=== PATIENT | female | born 1955 | race Caucasian/White ===

== ENCOUNTER → 2016-10-19 | Outpatient (CLI) | payer OTHER ==
--- NOTE | 2016-10-19 15:26 | CT ---
EXAMINATION TYPE: CT abdomen pelvis w con DATE OF EXAM: 10/19/2016 2:41 PM HISTORY: Upper abdominal pain, abnormal HIDA scan per patient CT DLP: 532.2mGycm Automated Exposure Control for Dose Reduction was Utilized. CONTRAST: CT scan of the abdomen and pelvis is performed with IV Contrast, patient injected with 100 mL of Omni paque 300. COMPARISON: None. FINDINGS: LUNG BASES: No significant abnormality is appreciated. LIVER/GB: No significant abnormality is appreciated. PANCREAS: No significant abnormality is seen. SPLEEN: No significant abnormality is seen. ADRENALS: No significant abnormality is seen. KIDNEYS: No significant abnormality is seen. BOWEL: Oral contrast does not reach terminal ileum level making evaluation of distal bowel slightly s uboptimal. There is no suspicious small or large bowel dilatation seen. There are sigmoid colonic div erticula identified. There is no CT evidence for acute diverticulitis. UTERUS/ADNEXA: Uterus is slightly retroverted in shape but normal in size. LYMPH NODES: No greater than 1cm abdominal or pelvic lymph nodes are appreciated. OSSEOUS STRUCTURES: Some multilevel spurring in the thoracic spine is present. There is multilevel fa cet arthropathy in the mid to lower lumbar spine. OTHER: There is mild mixed plaque in the abdominal aorta extending into pelvic branch vessels. IMPRESSION: No significant acute finding is seen to account for patient's clinical symptoms.
== END | disposition home or self-care (01) ==
LOC: RADCTMAIN 14:10
PROVIDERS: ATTEND Family Medicine
DX: R10.10 Upper abdominal pain, unspecified (principal)
CPT/HCPCS: 74177; Q9967 ×2

== ENCOUNTER → 2016-11-05 | Outpatient (CLI) | payer OTHER ==
--- NOTE | 2016-11-05 09:39 | BD ---
EXAMINATION TYPE: MG DEXA axial skeleton. DATE OF EXAM: 11/05/2016 8:50 AM COMPARISON: 06.05.2005 DEXA bone scan report CLINICAL HISTORY: M89.9 DISORDER OF BONE HX OF CT OF ABDOMEN WITH CONTRAST....17 DAYS AGO Height: 63 Weight: 148 FRAX RISK QUESTIONS: Alcohol (3 or more units per day): NO Family History (Parent hip fracture): YES, WITH BROKEN HIP Glucocorticoids (More than 3mos): NO (Ex: prednisone, prednisolone, methylprednisolone, dexamethasone, and hydrocortisone). History of Fracture in Adulthood: NO Secondary Osteoporosis: NO 1. Type 1 Diabetes: NO 2. Hyperthyroidism: NO 3. Menopause before 45: NO 4. Malnutrition: NO 5. Chronic liver disease: NO Rheumatoid Arthritis: NO Current Tobacco Use: NO RISK FACTORS HISTORY OF: Surgery to Spine NECK FUSION ONLY....C5 AND 6 Family History of Osteoporosis: YES, HER MOTHER AND AUNT Smoke tobacco: NO Drink Alcohol: SOCIAL Active: YES Diet low in dairy products/other sources of calcium: YES A BIT LOW Postmenopausal woman: AT 53 YRS Adrenal Insufficiency: NO MEDICATIONS: Additional Medications: CALCIUM AND VIT D, Additional History: NONE TO NOTE EXAM MEASUREMENTS: Bone mineral densitometry was performed using the Ur[employer] System. Bone mineral density as measured about the Lumbar spine is: ----- L1-L4(G/cm2): 1.134 T Score Values are as follows: ----- L1: -1.0 ----- L2: -1.3 ----- L3: 0.4 ----- L4: 0.0 ----- L1-L4: -0.4 Bone mineral density has: Decreased -5.6% since study of: 06.05.2005 Bone mineral density about the R hip (g/cm2): 0.733 Bone mineral density about the L hip (g/cm2): 0.783 T Score values are as follows: -----R Neck: -2.3 -----L Neck: -2.5 -----R Intertrochanter: -2.6 -----L Intertrochanter: -2.1 Bone mineral density has: Decreased -10.9% since study of: 06.05.2005 FRAX %'S: 22.6% FOR A MAJOR OSTEOPOROTIC FX AND 2.5% FOR A HIP FX....PROBABILITY OF FX IN 10 YRS TIME IMPRESSION: Osteopenia (T Score between -2.5 and -1 as noted by T score values in both hips remains present. Bone density is diminished from prior study. There is slightly increased risk of fracture and the patient may be considered for treatment. Re-Screen 1-2 years. NOTE: T-SCORE=SD OF THE YOUNG ADULT MEAN.
--- NOTE | 2016-11-06 10:38 | MM ---
Reason for exam: screening (asymptomatic). Last mammogram was performed 1 year ago. History: Patient is postmenopausal. Family history of breast cancer in mother at age 80 and breast cancer in aunt. Physical Findings: A clinical breast exam by your physician is recommended on an annual basis and results should be correlated with mammographic findings. MG 3D Screening Mammo W/Cad Bilateral CC and MLO view(s) were taken. Prior study comparison: October 27, 2015, bilateral MG 3d diag mammo w/cad [facility]. December 13, 2014, bilateral MG screening mammo w CAD. April 20, 2013, bilateral digital screening mammo w/CAD. The breast tissue is heterogeneously dense. This may lower the sensitivity of mammography. Finding: There are typically benign vascular calcifications in the left breast. There is no discrete abnormality. ASSESSMENT: Benign, BI-RAD 2 RECOMMENDATION: Routine screening mammogram of both breasts in 1 year. Manage patient on a clinical basis. Bilateral itchiness.
== END | disposition home or self-care (01) ==
LOC: RADMAMWWP 08:07
PROVIDERS: ATTEND Family Medicine
DX: Z12.31 Encounter for screening mammogram for malignant neoplasm of breast (principal); M85.80 Other specified disorders of bone density and structure, unspecified site; Z78.0 Asymptomatic menopausal state; Z80.3 Family history of malignant neoplasm of breast
CPT/HCPCS: 77080; 77063; G0202

== ENCOUNTER → 2016-11-09 | Outpatient (CLI) | payer OTHER ==
--- NOTE | 2016-11-09 10:01 | NM ---
EXAMINATION TYPE: NM hepatobiliary w EF DATE OF EXAM: 11/09/2016 9:26 AM COMPARISON: Pain HISTORY: TECHNIQUE: After the intravenous administration of 5.4 mCi Tc 99m Mebrofenin hepatobiliary scintigrap hy is performed. Immediate images post injection. FINDINGS: There is satisfactory initial accumulation of tracer by the liver. The gallbladder is visualized wit hin 10 minutes. The small bowel activity is noted within 50 minutes. At one hour 8 ounces of oral e nsure plus is given to mimic CCK and gallbladder ejection fraction is calculated at 82 %, in the norm al range. IMPRESSION: 1. No evidence of cholecystitis 2. Ejection fraction 82%
== END | disposition home or self-care (01) ==
LOC: RADNMMAIN 06:58
PROVIDERS: ATTEND Family Medicine
DX: R10.10 Upper abdominal pain, unspecified (principal)
CPT/HCPCS: 78226; A9537

== ENCOUNTER → 2016-12-17 | Outpatient (CLI) | payer OTHER ==
[2016-12-19 20:40] LABS: Mercury Whole Blood < 2 mcg/L (< 11)
== END | disposition home or self-care (01) ==
LOC: LABWHC1 14:06
PROVIDERS: ATTEND Family Medicine
DX: K90.9 Intestinal malabsorption, unspecified (principal)
CPT/HCPCS: 36415; 82175; 82570; 83630; 83655; 83825; 87045; 87046; 87328; 87329; 87338; 89055

== ENCOUNTER → 2017-06-04 | Outpatient (CLI) | payer OTHER ==
--- NOTE | 2017-06-04 16:45 | XR ---
EXAMINATION TYPE: XR abdomen 1V DATE OF EXAM: 06/04/2017 COMPARISON: 05/21/2013 HISTORY: Abdominal pain TECHNIQUE: 2 views FINDINGS: There is no sign of intestinal obstruction or pneumoperitoneum. Fecal pattern is normal. Maya ng bases are clear. There are no pathologic calcifications over the kidneys. IMPRESSION: Nonacute abdomen. No change.
== END | disposition home or self-care (01) ==
LOC: RADXRMAIN 16:25
PROVIDERS: ATTEND Family Medicine
DX: R10.9 Unspecified abdominal pain (principal)
CPT/HCPCS: 74000

== ENCOUNTER → 2017-10-04 | Outpatient (CLI) | payer OTHER ==
--- NOTE | 2017-10-04 07:23 | MR ---
EXAMINATION TYPE: MR brain wo/w cspine wo DATE OF EXAM: 10/04/2017 COMPARISON: Prior MRI brain and cervical spine June 25, 2013 HISTORY: General paresis / Skin disturbance, Weakness in arms, MS TECHNIQUE: Multiplanar, multisequence images of the cervical spine, brain , and brainstem is performed without a nd with IV contrast, utilizing 7 mL intravenous Gadavist gadolinium contrast is administered intraven ously. Demyelinating disease protocol with additional Sagittal Flair sequence performed of the brain and brainstem and PD sagittal sequence of cervical spine all acquired. FINDINGS: BRAIN: T2 Lesions Present : No Approximate Number of Lesions: N/A Locations Identified : N/A Size of Reference Lesion(s): N/A Enhancing Lesion(s) Present: N/A T1 Hypointense Lesion(s) Present: N/A Change from Prior: Stable Diffusion weighted images demonstrate no evidence of a recent infarct or other diffusion abnormality. There is no worrisome extra-axial fluid collection. The ventricular system and cisternal spaces ar e normal in size and appearance. The brain volume is age appropriate. Midline structures demonstrate normal morphology. The craniocervical junction appears within normal limits. Post contrast images demonstrate no abnormal enhancement. The dural venous sinuses appear pa tent. The visualized sinuses are clear and the globes are intact. IMPRESSION: No significant white matter changes to support clinical diagnosis of demyelinating diseas e. Unremarkable study. No significant change from prior MRI. C-SPINE: FINDINGS: Sagittal images of the cervical spine show the craniocervical junction to remain within nor mal limits. The cervical and upper thoracic spinal cord is normal in course, caliber, and signal. V ertebral alignment is stable and satisfactory. There is persistent desired ossific fusion after surge ry C5-C6 level. Vertebral body heights and disc space heights above and below surgical level are stab le and satisfactory. The bone marrow signal intensity is within normal limits. No significant spurrin g is seen. Posterior disc herniation C4-C5 level is redemonstrated on sagittal images. Axial images at C2-C3 level redemonstrate tiny right paracentral/foraminal disc protrusion on axial i mage 45 minimally effacing anterolateral thecal sac and causing mild to minimal right-sided neural fo raminal narrowing. Left-sided neural foramen is patent. No significant change from prior study is see n. Axial images at C3-C4 level redemonstrate right foraminal spur disc complex on axial image 39 effacin g anterolateral thecal sac and causing moderate right-sided neural foraminal narrowing. Left-sided ne ural foramen is patent. No significant significant change from prior study is seen. Axial images at C4-C5 level show broad-based posterior disc protrusion effacing anterior thecal sac n early up to ventral surface of spinal cord. Bilateral neural foramina remain patent on axial image 30 . No significant change from prior. Axial images at C5-C6 level show patent bilateral neural foramina. No significant disc herniation. Os sific fusion noted. Axial images at C6-C7 level show new left paracentral disc protrusion effacing anterolateral thecal s ac and causing mild right-sided neural foraminal narrowing, addition there is right foraminal disc pr otrusion component causing mild to moderate left-sided neural foraminal narrowing on axial image 16. Axial images at C7-T1 level remain within normal limits. There is subcentimeter cystic change suspected left thyroid lobe axial image 5 seen better on current study. IMPRESSION: No evidence of demyelinating disease involvement and cervical spinal cord. Postsurgical c hanges C5-C6 level with stable and satisfactory alignment. Multilevel generative changes redemonstrat ed as detailed above, new degenerative changes or lobulated disc herniation C6-C7 level noted.
== END | disposition home or self-care (01) ==
LOC: RADMRIMAIN 06:05
PROVIDERS: ATTEND Family Medicine
DX: M50.223 Other cervical disc displacement at C6-C7 level (principal); M47.812 Spondylosis without myelopathy or radiculopathy, cervical region; A52.17 General paresis; Z98.1 Arthrodesis status
CPT/HCPCS: 70553; 72141; A9581

== ENCOUNTER → 2017-11-15 | Outpatient (CLI) | payer OTHER ==
--- NOTE | 2017-11-15 14:14 | XR ---
EXAMINATION TYPE: XR chest 2V DATE OF EXAM: 11/15/2017 COMPARISON: NONE TECHNIQUE: PA and lateral views submitted. HISTORY: Pre op neck surgery FINDINGS: The lungs are clear and there is no pneumothorax, pleural effusion, or focal pneumonia. Calcified g ranuloma left upper lobe. Hypertrophic and degenerative change noted of the spine. Atherosclerotic ch antoinette aorta. IMPRESSION: 1. No acute process.
== END | disposition home or self-care (01) ==
LOC: RADXRMAIN 13:53
PROVIDERS: ATTEND Family Medicine
DX: Z01.818 Encounter for other preprocedural examination (principal)
CPT/HCPCS: 71046

== ENCOUNTER → 2018-05-16 | Outpatient (CLI) | payer OTHER ==
--- NOTE | 2018-05-16 14:18 | US ---
EXAMINATION TYPE: US kidneys/renal and bladder DATE OF EXAM: 05/16/2018 COMPARISON: CT and US CLINICAL HISTORY: R31.9 Hematuria. Pt states gross hematuria, urinary frequency, lower ABD pain EXAM MEASUREMENTS: Right Kidney: 10.4 x 4.1 x 3.7 cm Left Kidney: 10.9 x 5.2 x 4.8 cm Right Kidney: No evidence of hydro, possible specular reflectors scattered throughout ?calculi vs. ve ssel calcifications vs. other etiology Left Kidney: No evidence of hydro, possible specular reflectors scattered throughout ?calculi vs. ves jade calcifications vs. other etiology Bladder: wnl. Bilateral Jets seen: Only right jet visualized IMPRESSION: 1. Suspicion of a nonobstructing renal stones, largest in the superior pole right kidney 0.5 cm.
== END | disposition home or self-care (01) ==
LOC: RADUSWWP 12:53
PROVIDERS: ATTEND Family Medicine
DX: R31.9 Hematuria, unspecified (principal)
CPT/HCPCS: 76770

== ENCOUNTER 2018-12-11 09:33 | Emergency (ER) | payer OTHER ==
[2018-12-11 09:40] VITALS: TEMP 96.9
[2018-12-11] MEDS ORDERED: SODIUM CHLORIDE 0.9% 500 ML 500 ML IV STA (10:08)
[2018-12-11] MEDS ORDERED: MECLIZINE 12.5 MG TAB PO STA (10:45)
[2018-12-11] MEDS ORDERED: SODIUM CHLORIDE 0.9% 1,000 ML IV ONE (10:45)
[2018-12-11] MEDS ORDERED: ONDANSETRON 4 MG/2 ML VIAL IVP STA (10:45)
--- NOTE | 2018-12-11 10:46 | ED ---
General Adult HPI - General Chief complaint: Syncope Stated complaint: High BP, Light headed Time Seen by Provider: 12/11/18 10:08 Source: patient, RN notes reviewed Mode of arrival: ambulatory Limitations: no limitations - History of Present Illness Initial comments: 63-year-old female presents emergency Department with chief complaint of denies is not feeling well. Patient states she's had some left shoulder left arm pain last day or so did go to a chiropractor in which she received a massage. Patient states that did not help much. Patient states that she is now felt lightheaded, dizzy throughout the day and slightly nauseated. Patient denies any chest pain per se but states that she does have some chest pressure. She also states that she works at [email or web address] on the leg and intractable pressure which was elevated. She does not take any current medications. Patient did admit that she had cervical fusion 1 year ago. Denies any focal weakness denies vomiting, diarrhea, constipation. Denies any current shortness of breath. She does state that she sits up she feels lightheaded. - Related Data Home Medications Medication Instructions Recorded Confirmed Acetaminophen Tab [Tylenol Tab] 975 mg PO Q4H PRN 12/11/18 12/11/18 Turmeric Root Extract [Turmeric] 500 mg PO HS 12/11/18 12/11/18 Previous Rx's Medication Instructions Recorded Meclizine [Antivert] 25 mg PO TID PRN #15 tab 12/11/18 Ondansetron Odt [Zofran Odt] 4 mg PO Q8HR PRN #10 tab 12/11/18 Allergies Allergy/AdvReac Type Severity Reaction Status Date / Time codeine Allergy Nausea Verified 12/11/18 09:57 Review of Systems ROS Statement: Those systems with pertinent positive or pertinent negative responses have been documented in the HPI. ROS Other: All systems not noted in ROS Statement are negative. Past Medical History Past Medical History: Hyperlipidemia Additional Past Medical History / Comment(s): heartburn, constipation/diarrhea, skin "bumps" rash that comes and goes, cholesterol-diet control, blood test showed "inflammation", History of Any Multi-Drug Resistant Organisms: None Reported Past Surgical History: Back Surgery Additional Past Surgical History / Comment(s): cervical fusion, D&C Past Anesthesia/Blood Transfusion Reactions: Motion Sickness Past Psychological History: No Psychological Hx Reported Smoking Status: Never smoker - Past Family History Mother Family Medical History: Cancer, Pulmonary Embolus General Exam Limitations: no limitations General appearance: alert, in no apparent distress Head exam: Present: atraumatic, normocephalic, normal inspection Eye exam: Present: normal appearance, PERRL, EOMI. Absent: scleral icterus, conjunctival injection, periorbital swelling ENT exam: Present: normal exam, normal oropharynx, mucous membranes moist, TM's normal bilaterally Neck exam: Present: normal inspection, full ROM. Absent: tenderness, meningismus, lymphadenopathy Respiratory exam: Present: normal lung sounds bilaterally. Absent: respiratory distress, wheezes, rales, rhonchi, stridor Cardiovascular Exam: Present: regular rate, normal rhythm, normal heart sounds. Absent: systolic murmur, diastolic murmur, rubs, gallop, clicks Back exam: Present: full ROM. Absent: tenderness Neurological exam: Present: alert, oriented X3, CN II-XII intact, reflexes normal. Absent: motor sensory deficit Skin exam: Present: warm, dry, intact, normal color. Absent: rash Course Vital Signs 12/11/18 12/11/18 12/11/18 09:37 10:30 11:00 Temperature 96.9 F L Pulse Rate 79 82 77 Respiratory 18 17 16 Rate Blood Pressure 166/88 182/97 169/88 O2 Sat by Pulse 98 98 99 Oximetry 12/11/18 12/11/18 12/11/18 11:30 12:00 13:00 Temperature Pulse Rate 76 72 94 Respiratory 17 16 18 Rate Blood Pressure 162/85 148/90 149/78 O2 Sat by Pulse 98 97 100 Oximetry EKG Findings - EKG Comments: EKG Findings:: EKG performed at time: 17 normal sinus rhythm with rate 69 DC 122 QRS 88 QT/ QTC 372/398 Medical Decision Making - Medical Decision Making 63-year-old female presented for generalized not feeling well, lightheaded and dizzy. Patient had lab work, EKG, chest x-ray and CT of the brain to rule out mass or bleeding. Patient has no focal deficits no concern for CVA this time. Patient's symptoms are more consistent with vertigo. Patient is improved at the IV fluids, antiemetics and Antivert. Patient discharged with Zofran and Antivert. Return parameters discussed. - Lab Data Result diagrams: 12/11/18 10:41 12/11/18 10:41 Lab Results 12/11/18 12/11/18 12/11/18 Range/Units 10:30 10:41 10:41 WBC 9.2 (3.8-10.6) k/uL RBC 4.55 (3.80-5.40) m/uL Hgb 13.6 (11.4-16.0) gm/dL Hct 42.8 (34.0-46.0) % MCV 94.0 (80.0-100.0) fL MCH 29.9 (25.0-35.0) pg MCHC 31.8 (31.0-37.0) g/dL RDW 12.3 (11.5-15.5) % Plt Count 386 (150-450) k/uL Neutrophils % 75 % Lymphocytes % 16 % Monocytes % 5 % Eosinophils % 2 % Basophils % 1 % Neutrophils # 6.9 (1.3-7.7) k/uL Lymphocytes # 1.5 (1.0-4.8) k/uL Monocytes # 0.5 (0-1.0) k/uL Eosinophils # 0.2 (0-0.7) k/uL Basophils # 0.1 (0-0.2) k/uL PT (9.0-12.0) sec INR (<1.2) APTT (22.0-30.0) sec D-Dimer (<0.60) mg/L FEU Sodium 139 (137-145) mmol/L Potassium 4.4 (3.5-5.1) mmol/L Chloride 102 (98-107) mmol/L Carbon Dioxide 27 (22-30) mmol/L Anion Gap 10 mmol/L BUN 10 (7-17) mg/dL Creatinine 0.43 L (0.52-1.04) mg/dL Est GFR (CKD-EPI)AfAm >90 (>60 ml/min/1.73 sqM) Est GFR (CKD-EPI)NonAf >90 (>60 ml/min/1.73 sqM) Glucose 102 H (74-99) mg/dL Calcium 9.4 (8.4-10.2) mg/dL Magnesium 2.1 (1.6-2.3) mg/dL Total Bilirubin 0.5 (0.2-1.3) mg/dL AST 29 (14-36) U/L ALT 35 (9-52) U/L Alkaline Phosphatase 67 (38-126) U/L Troponin I (0.000-0.034) ng/mL Total Protein 7.7 (6.3-8.2) g/dL Albumin 4.7 (3.5-5.0) g/dL Urine Color Light Yellow Urine Appearance Cloudy H (Clear) Urine pH 8.0 (5.0-8.0) Ur Specific [place] 1.015 (1.001-1.035) Urine Protein Negative (Negative) Urine Glucose (UA) Negative (Negative) Urine Ketones Negative (Negative) Urine Blood Negative (Negative) Urine Nitrite Negative (Negative) Urine Bilirubin Negative (Negative) Urine Urobilinogen <2.0 (<2.0) mg/dL Ur Leukocyte Esterase Negative (Negative) Urine WBC 1 (0-5) /hpf Ur Squamous Epith Cells <1 (0-4) /hpf Amorphous Sediment Moderate H (None) /hpf 12/11/18 12/11/18 Range/Units 10:41 10:41 WBC (3.8-10.6) k/uL RBC (3.80-5.40) m/uL Hgb (11.4-16.0) gm/dL Hct (34.0-46.0) % MCV (80.0-100.0) fL MCH (25.0-35.0) pg MCHC (31.0-37.0) g/dL RDW (11.5-15.5) % Plt Count (150-450) k/uL Neutrophils % % Lymphocytes % % Monocytes % % Eosinophils % % Basophils % % Neutrophils # (1.3-7.7) k/uL Lymphocytes # (1.0-4.8) k/uL Monocytes # (0-1.0) k/uL Eosinophils # (0-0.7) k/uL Basophils # (0-0.2) k/uL PT 9.7 (9.0-12.0) sec INR 0.9 (<1.2) APTT 24.9 (22.0-30.0) sec D-Dimer 0.25 (<0.60) mg/L FEU Sodium (137-145) mmol/L Potassium (3.5-5.1) mmol/L Chloride (98-107) mmol/L Carbon Dioxide (22-30) mmol/L Anion Gap mmol/L BUN (7-17) mg/dL Creatinine (0.52-1.04) mg/dL Est GFR (CKD-EPI)AfAm (>60 ml/min/1.73 sqM) Est GFR (CKD-EPI)NonAf (>60 ml/min/1.73 sqM) Glucose (74-99) mg/dL Calcium (8.4-10.2) mg/dL Magnesium (1.6-2.3) mg/dL Total Bilirubin (0.2-1.3) mg/dL AST (14-36) U/L ALT (9-52) U/L Alkaline Phosphatase (38-126) U/L Troponin I <0.012 (0.000-0.034) ng/mL Total Protein (6.3-8.2) g/dL Albumin (3.5-5.0) g/dL Urine Color Urine Appearance (Clear) Urine pH (5.0-8.0) Ur Specific [place] (1.001-1.035) Urine Protein (Negative) Urine Glucose (UA) (Negative) Urine Ketones (Negative) Urine Blood (Negative) Urine Nitrite (Negative) Urine Bilirubin (Negative) Urine Urobilinogen (<2.0) mg/dL Ur Leukocyte Esterase (Negative) Urine WBC (0-5) /hpf Ur Squamous Epith Cells (0-4) /hpf Amorphous Sediment (None) /hpf Disposition Clinical Impression: Vertigo, Nausea Disposition: HOME SELF-CARE Condition: Stable Instructions (If sedation given, give patient instructions): Vertigo (ED) Additional Instructions: Please return to the Emergency Department if symptoms worsen or any other concerns. Prescriptions: Meclizine [Antivert] 25 mg PO TID PRN #15 tab PRN Reason: Vertigo Ondansetron Odt [Zofran Odt] 4 mg PO Q8HR PRN #10 tab PRN Reason: Nausea Is patient prescribed a controlled substance at d/c from ED?: No Referrals: Mildred Figueroa MD [Primary Care Provider] - 1-2 days Time of Disposition: 13:23
[2018-12-11 10:53] LABS: Basophils # (A) 0.1 k/uL (0-0.2); Basophils % (A) 1 %; Eosinophils # (A) 0.2 k/uL (0-0.7); Eosinophils % (A) 2 %; HCT 42.8 % (34.0-46.0); HGB 13.6 gm/dL (11.4-16.0); Lymphocytes # (A) 1.5 k/uL (1.0-4.8); Lymphocytes % (A) 16 %; MCH 29.9 pg (25.0-35.0); MCHC 31.8 g/dL (31.0-37.0); Mean Platelet Volume 7.7; Monocytes # (A) 0.5 k/uL (0-1.0); Monocytes % (A) 5 %; Neutrophils # (A) 6.9 k/uL (1.3-7.7); Neutrophils % (A) 75 %; Platelet Count 386 k/uL (150-450); RBC 4.55 m/uL (3.80-5.40); RDW 12.3 % (11.5-15.5); WBC 9.2 k/uL (3.8-10.6)
[2018-12-11 11:03] LABS: ALT 35 U/L (9-52); AST 29 U/L (14-36); Albumin 4.7 g/dL (3.5-5.0); Alkaline Phosphatase 67 U/L (38-126); Anion Gap 10 mmol/L; Blood Urea Nitrogen 10 mg/dL (7-17); Calcium 9.4 mg/dL (8.4-10.2); Carbon Dioxide 27 mmol/L (22-30); Chloride 102 mmol/L (98-107); Glucose 102 mg/dL (74-99); Potassium 4.4 mmol/L (3.5-5.1); Sodium 139 mmol/L (137-145); Total Bilirubin 0.5 mg/dL (0.2-1.3); Total Protein 7.7 g/dL (6.3-8.2)
[2018-12-11 11:06] LABS: D-Dimer 0.25 mg/L FEU (<0.60); INR 0.9 (<1.2); Partial Thromboplastin Time 24.9 sec (22.0-30.0); Prothrombin Time 9.7 sec (9.0-12.0)
[2018-12-11 11:07] LABS: Amorphous Sediment,Urine Moderate /hpf; Appearance,Urine Cloudy (Clear); Bilirubin,Urine Negative (Negative); Blood,Urine Negative (Negative); Color,Urine Light Yellow; Glucose,Urine (UA) Negative (Negative); Ketones,Urine Negative (Negative); Leukocyte Esterase,Urine Negative (Negative); Nitrite,Urine Negative (Negative); Protein,Urine Negative (Negative); Specific Gravity,Urine 1.015 (1.001-1.035); Squamous Epithelial Cell,Urine <1 /hpf (0-4); Urobilinogen,Urine <2.0 mg/dL (<2.0); WBC,Urine 1 /hpf (0-5)
--- NOTE | 2018-12-11 11:25 | XR ---
EXAMINATION TYPE: XR chest 2V DATE OF EXAM: 12/11/2018 COMPARISON: Prior chest x-ray 11/15/2017 HISTORY: Syncope TECHNIQUE: Frontal and lateral views of the chest are obtained. FINDINGS: There is no focal air space opacity, pleural effusion, or pneumothorax seen. The cardiac silhouette size is within normal limits. Postop changes are noted to the cervical spine. There are ov erlying cardiac leads. Right hemidiaphragm is persistently elevated. Aorta is dense. The osseous st ructures are intact. IMPRESSION: No acute cardiopulmonary process.
[2018-12-11 11:36] LABS: Magnesium 2.1 mg/dL (1.6-2.3)
[2018-12-11] MEDS ORDERED: METOCLOPRAMIDE 5 MG/ML 2 ML VIAL IVP STA (11:50)
--- NOTE | 2018-12-11 13:10 | CT ---
EXAMINATION TYPE: CT brain wo con DATE OF EXAM: 12/11/2018 COMPARISON: 05/21/2013 INDICATION: Pain and dizziness DLP: 1099.4 mGycm, Automated exposure control for dose reduction was used. CONTRAST: None CT of the brain is performed utilizing 3 mm thick sections through the posterior fossa and 3 mm thick sections through the remaining calvarium. Study is performed within 24 hours of arrival to the hosp ital. No abnormal hyperdensity is present to suggest an acute intracranial hemorrhage. No mass lesion is evident. Stable punctate calcifications in the right basal ganglion No acute infarcts are evident. Ventricles and sulci are appropriate for the patient age. Paranasal sinuses and mastoid air cells within the [id number] are clear. IMPRESSIONS: 1. Normal CT Brain
[2018-12-11 13:12] VITALS: BP 149/78; PULSE 94; RESP 18
== END 2018-12-11 17:36 | disposition home or self-care (01) ==
LOC: EC 09:33
DX: R42 Dizziness and giddiness (principal); R11.0 Nausea; Z88.5 Allergy status to narcotic agent
CPT/HCPCS: 36415; 93005; 85379; 80053; 83735; 84484; 85025; 85610; 85730; 81001; 71046; 70450; 99284; 96374; 96375; 96361; J2765; J2405

== ENCOUNTER → 2019-04-09 | Outpatient (CLI) | payer OTHER ==
--- NOTE | 2019-04-09 16:35 | NM ---
EXAMINATION TYPE: NM hepatobiliary w EF DATE OF EXAM: 04/09/2019 COMPARISON: Prior exam 11/09/2016 HISTORY: Right upper quadrant pain TECHNIQUE: After the intravenous administration of 4.51 mCi Tc 99m Mebrofenin hepatobiliary scintigra phy is performed. Immediate images post injection. FINDINGS: There is satisfactory initial accumulation of tracer by the liver. The gallbladder is visualized wit hin 4 minutes. The small bowel activity is noted within 18 minutes. At one hour 8 ounces of oral en sure plus is given to mimic CCK and gallbladder ejection fraction is calculated at 89 %, higher than on previous exam and slightly above the upper limit of the normal range. Therefore there is no scint igraphic evidence of cystic or common bile duct obstruction to suggest acute cholecystitis. IMPRESSION: Findings could possibly represent hyper dynamic gallbladder
== END ==
LOC: RADNMMAIN 12:31
PROVIDERS: ATTEND Internal Medicine
DX: R10.11 Right upper quadrant pain (principal)
CPT/HCPCS: 78226; A9537

== ENCOUNTER → 2019-08-25 | Outpatient (CLI) | payer OTHER, MEDICARE ==
--- NOTE | 2019-08-25 13:14 | XR ---
EXAMINATION TYPE: XR chest 2V DATE OF EXAM: 08/25/2019 COMPARISON: Prior chest x-ray 12/11/2018 HISTORY: This of breath TECHNIQUE: Frontal and lateral views of the chest are obtained. FINDINGS: There is no focal air space opacity, pleural effusion, or pneumothorax seen. The cardiac silhouette size is within normal limits. The osseous structures are intact. There is thoracic spond ylosis. Postop changes are noted to the cervical spine. Right hemidiaphragm is again elevated, there is eventration change present. Aorta is dense. IMPRESSION: No acute cardiopulmonary process.
== END | disposition home or self-care (01) ==
LOC: RADXRYALE 10:07
PROVIDERS: ATTEND Internal Medicine
DX: R06.02 Shortness of breath (principal)
CPT/HCPCS: 71046

== ENCOUNTER → 2019-09-23 | Outpatient (CLI) | payer OTHER, MEDICARE ==
--- NOTE | 2019-09-23 09:13 | US ---
EXAMINATION TYPE: US abdomen complete DATE OF EXAM: 09/23/2019 COMPARISON: NONE CLINICAL HISTORY: J98.6 DISORDERS OF DIAPHRAM. RUQ pain EXAM MEASUREMENTS: Liver Length: 13.0 cm Gallbladder Wall: 0.3 cm CBD: 0.4 cm Spleen: 8.3 cm Right Kidney: 10.0 x 3.9 x 3.7 cm Left Kidney: 10.7 x 5.1 x 4.4 cm Technical limitations due to large amount of overlying bowel content Pancreas: Obscured by bowel gas Liver: best visualized intercostally, limited evaluation Gallbladder: no evidence of stones Evidence for sonographic Shelby's sign: no CBD: appears wnl Spleen: appears wnl Right Kidney: no evidence of hydronephrosis Left Kidney: no evidence of hydronephrosis Upper IVC: wnl Abd Aorta: wnl The liver is heterogenous but suboptimally evaluated. The pancreas is obscured. No gross evidence of cholelithiasis or hydronephrosis. IMPRESSION: Severely limited exam due to overlying bowel gas. No gross evidence of cholelithiasis nor acute cholecystitis. No gross evidence of hydronephrosis. Possible hepatic steatosis.
--- NOTE | 2019-09-23 09:39 | BD ---
EXAMINATION TYPE: Axial Bone Density DATE OF EXAM: 09/23/2019 COMPARISON: 2017 CLINICAL HISTORY: N 95.8 Height: 64 inches Weight: 152 FRAX RISK QUESTIONS: Alcohol (3 or more units per day): no Family History (Parent hip fracture): YES Glucocorticoids (More than 3mos): no (Ex: prednisone, prednisolone, methylprednisolone, dexamethasone, and hydrocortisone). History of Fracture in Adulthood: no Secondary Osteoporosis: 1. Type 1 Diabetes: no 2. Hyperthyroidism: no 3. Menopause before 45: no 4. Malnutrition: no 5. Chronic liver disease: no Rheumatoid Arthritis: no Current Tobacco Use: no RISK FACTORS HISTORY OF: Surgery to Spine: cervical neck fusion When: about 2 years ago was last neck surgery, one before that also Family History of Osteoporosis: yes Active: yes Diet low in dairy products/other sources of calcium: no Postmenopausal woman: yes Take estrogen and/or progesterone medications: no Lost more than 2 inches in height since high school: no Frequent falls: no Poor Health: no Hyperparathyroidism: no Adrenal Insufficiency: no MEDICATIONS: Prednisone or other steroids: no Thyroid Medications: no Osteoporosis Medications: no Additional Medications: multivitamin, Vit D Additional History: arthritis EXAM MEASUREMENTS: Bone mineral densitometry was performed using the [place] [facility]. Bone mineral density as measured about the Lumbar spine is: ----- L1-L4(G/cm2): 1.146 T Score Values are as follows: ----- L2: -1.0 ----- L3: 0.3 ----- L4: 0.2 ----- L1-L4: -0.3 Bone mineral density has: Increased 1.8% since study of: 11/05/2016 Bone mineral density about the R hip (g/cm2): 0.661 Bone mineral density about the L hip (g/cm2): 0.709 T Score values are as follows: -----R Neck: -2.7 -----L Neck: -2.4 -----R Total: -2.2 -----L Total: -1.9 Bone mineral density has: Decreased -1.5% since study of: 11/05/2016 IMPRESSION: Osteoporosis (T Score less than -2.5). There is increased fracture risk and therapy is usually indicated based on age. Re-Screen 1-2 years. NOTE: T-SCORE=SD OF THE YOUNG ADULT MEAN.
--- NOTE | 2019-09-23 11:05 | MM ---
Reason for exam: screening (asymptomatic). Last mammogram was performed 2 years and 11 months ago. History: Patient is postmenopausal. Family history of breast cancer in mother at age 80 and breast cancer in aunt. Physical Findings: A clinical breast exam by your physician is recommended on an annual basis and results should be correlated with mammographic findings. MG 3D Screening Mammo W/Cad Bilateral CC and MLO view(s) were taken. Prior study comparison: November 05, 2016, bilateral MG 3d screening mammo w/cad. October 27, 2015, bilateral MG 3d diag mammo w/cad [facility]. The breast tissue is heterogeneously dense. This may lower the sensitivity of mammography. Benign appearing vascular calcifications in the left breast. No suspicious abnormality. ASSESSMENT: Benign, BI-RAD 2 RECOMMENDATION: Routine screening mammogram of both breasts in 1 year.
== END | disposition home or self-care (01) ==
LOC: RADMAMWWP 07:39
PROVIDERS: ATTEND Internal Medicine
DX: Z12.31 Encounter for screening mammogram for malignant neoplasm of breast (principal); M81.0 Age-related osteoporosis without current pathological fracture; J98.6 Disorders of diaphragm
CPT/HCPCS: 76700; 77063; 77067; 77080

== ENCOUNTER → 2020-10-31 | Outpatient (CLI) | payer MEDICARE, BC ==
--- NOTE | 2020-11-01 09:05 | MM ---
Reason for exam: screening (asymptomatic). Last mammogram was performed 1 year and 1 month ago. History: Patient is postmenopausal. Family history of breast cancer in mother at age 80 and breast cancer in aunt. Physical Findings: A clinical breast exam by your physician is recommended on an annual basis and results should be correlated with mammographic findings. MG 3D Screening Mammo W/Cad Bilateral CC and MLO view(s) were taken. Prior study comparison: September 23, 2019, bilateral MG 3d screening mammo w/cad. November 05, 2016, bilateral MG 3d screening mammo w/cad. The breast tissue is heterogeneously dense. This may lower the sensitivity of mammography. There are benign appearing round vascular calcifications bilaterally. There is no discrete abnormality. ASSESSMENT: Benign, BI-RAD 2 RECOMMENDATION: Routine screening mammogram of both breasts in 1 year.
== END | disposition home or self-care (01) ==
LOC: RADMAMWWP 08:10
PROVIDERS: ATTEND Internal Medicine
DX: Z12.31 Encounter for screening mammogram for malignant neoplasm of breast (principal); Z78.0 Asymptomatic menopausal state; Z80.3 Family history of malignant neoplasm of breast
CPT/HCPCS: 77063; 77067

== ENCOUNTER → 2023-04-17 | Outpatient (CLI) | payer MEDICARE, BC ==
--- NOTE | 2023-04-17 11:10 | MR ---
EXAMINATION TYPE: MR brain wo/w con DATE OF EXAM: 04/17/2023 COMPARISON: 10/04/2017 HISTORY: Pt keeps falling TECHNIQUE: Multiplanar, multisequence images of the brain and brainstem is performed without and with IV contras t, utilizing 6.5ml mL intravenous Gadavist . FINDINGS: Diffusion weighted images demonstrate no evidence of a recent infarct or other diffusion ab normality. There is mild generalized degenerative change. Areas of abnormal signal seen in the periv entricular white matter. The related artifact. Tiny area of abnormal signal in the hector suggestive of remote ischemia. There is a tiny punctate area of abnormal signal in the superior right parietal lobe likely related t o tiny focus of remote ischemic white matter change. Midline structures demonstrate normal morphology. The craniocervical junction appears within normal limits. Post contrast images demonstrate no abnormal enhancement. The dural venous sinuses appear pa tent. Orbits are symmetric. Mild changes of chronic mastoiditis and sinusitis. Previous surgery with artifact cervical spine. IMPRESSION: 1. No acute intracranial process.
--- NOTE | 2023-04-17 11:20 | MR ---
EXAMINATION TYPE: MR cervical spine wo con DATE OF EXAM: 04/17/2023 COMPARISON: 10/04/2017 HISTORY: Numbness left arm and fingers - Hx of neck surgery TECHNIQUE: Multiplanar, multisequence images of the cervical spine were acquired without contrast. There is artifact extending from levels C4-C7 suggestive of prior surgical change. C2-C3: Very mild central right paracentral disc bulging but no discrete herniation or canal stenosis or neural foramina. C3-C4: Posterior spondylosis with uncovertebral joint hypertrophy and facet arthropathy. There is mil d left and moderate right foraminal protrusion. Disc bulge or protrusion capped by spur r extends par acentrally and laterally to the right similar to prior exam. C4-C5: Postsurgical change with posterior spondylosis. Neural foramina are patent. Uncovertebral join t hypertrophy on the right. No canal stenosis. C5-C6: Postsurgical change with posterior spondylosis. Neural foramina are patent. Uncovertebral join t hypertrophy on the right. No canal stenosis C6-C7: Postsurgical change with posterior spondylosis. Neural foramina are patent. Uncovertebral join t hypertrophy on the right. No canal stenosis C7-T1: No evidence for degenerative disc disease. No disc bulge/herniation or protrusion. No Canal stenosis. Foramina are patent bilaterally. Cervical segments are intact. There is normal alignment. Cervical spinal cord is of normal signal. Craniovertebral junction relationships are within normal limits. Thyroid heterogeneous in signal. IMPRESSION: 1. Postsurgical changes compatible with anterior fusion with no evidence of canal stenosis or disc he rniation at the surgical levels. 2. There is a right paracentral and right lateral disc bulge or protrusion capped by spur C3-C4 with moderate right-sided foraminal encroachment similar to the prior exam. No canal stenosis. 3. Heterogeneous signal thyroid associated with thyroiditis.
== END | disposition home or self-care (01) ==
LOC: RADMRIMAIN 08:30
PROVIDERS: ATTEND Psychiatry & Neurology Neurology
DX: I67.9 Cerebrovascular disease, unspecified (principal); G99.2 Myelopathy in diseases classified elsewhere; M50.31 Other cervical disc degeneration, high cervical region; E06.9 Thyroiditis, unspecified; Z98.890 Other specified postprocedural states
CPT/HCPCS: 70553; 72141; A9585

== ENCOUNTER → 2023-08-12 | Outpatient (CLI) | payer MEDICARE, BC ==
--- NOTE | 2023-08-13 20:49 | MM ---
Reason for Exam: Screening (asymptomatic). Last mammogram was performed 1 year(s) and 8 month(s) ago. Patient History: Menarche at age 11. First Full-Term at age 22. Postmenopausal. Maternal aunt had breast cancer. Mother had breast cancer, age 80. Daughter had breast cancer, bilateral, age 46. Risk Values: Марина 5 year model risk: 6.9%. NCI Lifetime model risk: 20.0%. Prior Study Comparison: 09/23/2019 Bilateral Screening Mammogram, [facility]. 10/31/2020 Bilateral Screening Mammogram, [facility]. 11/30/2021 Bilateral MG 3D screening mammo w/cad, [facility]. Tissue Density: There are scattered fibroglandular densities. Findings: Analyzed By CAD. There is no suspicious group of microcalcifications or new suspicious mass in either breast. Overall Assessment: Negative, BI-RAD 1 Management: Screening Mammogram of both breasts in 1 year. SEE NOTE BELOW IN REGARDS TO PATIENT'S INCREASED FIVE-YEAR МАРИНА SCORE AND INCREASED LIFETIME RISK SCORE. Patient should continue monthly self-breast exams. A clinical breast exam by your physician is recommended on an annual basis. This exam should not preclude additional follow-up of suspicious palpable abnormalities. Note on Марина scores and lifetime risk: 1. A Марина score greater than 3% is considered moderate risk. If this is the case, consider specialist referral to assess eligibility for a risk reducing agent. 2. If overall lifetime risk for the development of breast cancer is 20% or higher, the patient may qualify for future screening with alternating mammogram and breast MRI. Electronically signed and approved by: Kelly Doss M.D. Radiologist
== END | disposition home or self-care (01) ==
LOC: RADMAMWWP 16:01
PROVIDERS: ATTEND Internal Medicine
DX: Z12.31 Encounter for screening mammogram for malignant neoplasm of breast (principal); Z80.3 Family history of malignant neoplasm of breast; Z78.0 Asymptomatic menopausal state
CPT/HCPCS: 77063; 77067

== ENCOUNTER → 2024-05-27 | Outpatient (CLI) | payer MEDICARE, BC ==
--- NOTE | 2024-05-27 11:29 | XR ---
EXAMINATION TYPE: XR shoulder complete LT DATE OF EXAM: 05/27/2024 11:23 AM COMPARISON: None CLINICAL INDICATION: Female, 68 years old with history of [id number] PAIN LT SHLD,CERVICALGIA; [facility] TECHNIQUE: XR shoulder complete LT; examined in AP, internally rotated and scapular Y projections. FINDINGS: No evidence of acute osseous pathology, joint dislocation, or soft tissue swelling. The remaining po rtions of the visualized chest are unremarkable. Degeneration changes of the acromion, distal clavic le with osteophyte formation. There is osteophyte formation of the glenoid and humeral head. There is joint space narrowing of glenohumeral joint. IMPRESSION: 1. No acute osseous pathology. 2. Mild shoulder osteoarthrosis. [facility], , 05/27/2024 11:27 AM
--- NOTE | 2024-05-27 11:31 | XR ---
EXAMINATION TYPE: XR cervical spine comp DATE OF EXAM: 05/27/2024 11:23 AM COMPARISON: None CLINICAL INDICATION: Female, 68 years old with history of [id number] PAIN LT SHLD,CERVICALGIA; [facility] TECHNIQUE: The cervical spine was imaged in frontal, lateral, odontoid and bilateral oblique. FINDINGS: Fixation hardware at C4-C5 and C6-C7 hardware appears intact. Ankylosis at C4-C7 is thought to be present. This can be confirmed with CT imaging.. The osseous structures show straighten postsurgical alignment without evidence of an acute fracture. There are minimal osteophytes noted throughout the cervical spine on the anterior and lateral aspects of the vertebral bodies. Discectomy at C4-C5 and C6-C7 possibly prior at C5-C6. Pedicles are intact . Soft tissues are within normal limits. The odontoid appears intact. IMPRESSION: 1. No fracture or dislocation. 2. Surgical changes are intact. Fusion of C4-C7 vertebral bodies. 3. Mild degenerative disc disease changes of the cervical spine. [facility], , 05/27/2024 11:29 AM
== END | disposition home or self-care (01) ==
LOC: RADXRYALE 11:02
PROVIDERS: ATTEND Internal Medicine
DX: M50.30 Other cervical disc degeneration, unspecified cervical region (principal); M19.012 Primary osteoarthritis, left shoulder; M43.22 Fusion of spine, cervical region
CPT/HCPCS: 72050